=== PATIENT | female | born 1995 | race Two or more races ===

== ENCOUNTER 2021-06-29 06:40 | Day surgery (SDC) | payer OTHER ==
[~2021-06-29] VITALS: Ht 160 cm; Wt 58.5 kg
[2021-06-29 07:06] VITALS: BP 116/78
[2021-06-29] MEDS ORDERED: [UNRECOGNIZED DRUG - REMARK] (07:09)
[2021-06-29] MEDS ORDERED: MIDAZOLAM 1 MG/ML, 2ML ONE (07:14)
[2021-06-29] MEDS ORDERED: FENTANYL PF 100 MCG/2ML ONE ×2 (07:14→08:09)
[2021-06-29] MEDS ORDERED: CHLORHEXIDINE 15 ML UDC ONE (07:16)
[2021-06-29] MEDS ORDERED: HYDROmorphone 1 MG/ML, 1ML INJ IVPush PRN (07:30)
[2021-06-29] MEDS ORDERED: hydrALAzine 20 MG/ML, 1ML IV PRN (07:30)
[2021-06-29] MEDS ORDERED: DIPHENHYDRAMINE 50 MG/ML, 1ML IVPush PRN (07:30)
[2021-06-29] MEDS ORDERED: LABETALOL 5MG/ML, 20ML IV PRN (07:30)
[2021-06-29] MEDS ORDERED: FENTANYL PF 100 MCG/2ML IV PRN (07:30)
[2021-06-29] MEDS ORDERED: PROMETHAZINE 25 MG/ML, 1ML IVPush PRN (07:30)
[2021-06-29] MEDS ORDERED: ACETAMINOPHEN 325 MG TABLET PO PRN (07:30)
[2021-06-29] MEDS ORDERED: MEPERIDINE/PF 25MG/0.5ML IVPush PRN (07:30)
[2021-06-29] MEDS ORDERED: OXYcodone 5 MG/5 ML ORAL.SOL UDC PO PRN (07:30)
[2021-06-29] MEDS ORDERED: LACTATED RINGERS 1,000 ML IV SCH (07:30)
[2021-06-29] MEDS ORDERED: CHLORHEXIDINE 15 ML UDC PO ONE (07:30)
[2021-06-29] MEDS ORDERED: HALOPERIDOL 5 MG/ML IV PRN (07:30)
[2021-06-29] MEDS ORDERED: ALBU2.5V11 NEB (07:32)
[2021-06-29 07:45] LABS: HCG UR SG 1.027 (1.003-1.030)
[2021-06-29] MEDS ORDERED: DEXAMETHASONE 4 MG/ML, 1ML ONE (08:10)
[2021-06-29] MEDS ORDERED: PROPOFOL 10 MG/ML, 20ML ONE (08:10)
[2021-06-29] MEDS ORDERED: ONDANSETRON 2MG/ML, 2ML ONE (08:10)
[2021-06-29] MEDS ORDERED: CEFAZOLIN 1,000 MG ONE (08:10)
[2021-06-29] MEDS ORDERED: ROCURONIUM 10MG/ML,5ML ONE (08:10)
[2021-06-29] MEDS ORDERED: GLYCOPYRROLATE 0.2MG/1ML, 5ML ONE (08:10)
[2021-06-29] MEDS ORDERED: NEOSTIGMINE 1 MG/ML, 10ML ONE (08:10)
[2021-06-29] MEDS ORDERED: SUCCINYLCHOLINE 20 MG/ML, 10ML ONE (08:10)
[2021-06-29] MEDS ORDERED: KETOROLAC 30 MG/1 ML ONE (08:11)
[2021-06-29] MEDS ORDERED: BUPIVACAINE/EPI 0.5% 1:200K INFIL ONE (08:12)
[2021-06-29] MEDS ORDERED: PLEASE ENTER ALLERGIES MC SCH (08:30)
[2021-06-29] MEDS ORDERED: BACITRACIN OINT 500U/GM, 15 GM ONE (08:41)
[2021-06-29] MEDS ORDERED: MEPERIDINE/PF 25MG/ML,1ML ONE (09:09)
[2021-06-29] MEDS ORDERED: OXYC-302 PO (09:59)
== END 2021-06-29 10:35 | disposition home or self-care (01) ==
LOC: OUT 06:40
PROVIDERS: ATTEND Colon & Rectal Surgery
DX: L05.01 Pilonidal cyst with abscess (principal); L72.9 Follicular cyst of the skin and subcutaneous tissue, unspecified
CPT/HCPCS: 11772; 81025; 88304; J0330; J0690; J1100; J1885; J2175; J2250; J2405; J2704; J3010; J7120; J2710

== ENCOUNTER → 2021-06-29 | Day surgery (SDC) | payer OTHER ==
[~2021-06-29] MED LIST: ALBU2.5V11 NEB; BUPIVACAINE/PF 0.5% ONE; EPINEPHRINE 1 MG/ML, 1ML ONE; OXYC-302 PO; [UNRECOGNIZED DRUG - REMARK]
== END | disposition home or self-care (01) ==
LOC: OR 12:14
PROVIDERS: ATTEND Colon & Rectal Surgery
DX: Z02.9 Encounter for administrative examinations, unspecified (principal)
CPT/HCPCS: J0171